=== PATIENT | female | born 1945 | race Caucasian/White ===

== ENCOUNTER 2019-11-09 09:11 | Day surgery (SDC) | payer OTHER ==
[~2019-11-09 09:11] MED LIST: ASA81 MG PO; FOLIC ACID1 MG PO; LOSARTAN POTASS50 MG PO; METFORMIN HCL500 MG PO; POLY119PG PO; PRILOSEC10 MG PO; PROTONIX20 MG PO
== END 2019-11-09 17:56 | disposition home or self-care (01) ==
LOC: CIR.AMB 09:11
PROVIDERS: ATTEND Colon & Rectal Surgery
DX: K60.1 Chronic anal fissure (principal); K62.4 Stenosis of anus and rectum; Z20.828 Contact with and (suspected) exposure to other viral communicable diseases